=== PATIENT | male | born 1940 | race Caucasian/White ===

== ENCOUNTER 2023-01-28 06:18 | Inpatient (IN) | payer MEDICARE, SELFPAY ==
[2023-01-17 12:40] VITALS: BMI 21.5
[2023-01-28] VITALS (13 sets, daily range): BP systolic 98–149; BP diastolic 52–78; PULSE 63–87; RESP 12–20; TEMP 35.7–36.8; O2SAT 94–100; BMI 21.5
--- NOTE | 2023-01-28 | PATH_ITS ---
[facility] Accession Number: [id number] No. of containers..03 Tissue . 01 Material submitted: . PART A: pelvis - RIGHT PELVIC LYMPH NODE PART B: pelvis - LEFT PELVIC LYMPH NODE PART C: prostate - PROSTATE . 01 Diagnosis: A. Pelvic Lymph Nodes, Right, Excision: Three lymph nodes negative for metastatic carcinoma (0/3). . B. Lymph Nodes, Left Pelvic, Excision: Four lymph nodes negative for metastatic carcinoma (0/4). . C. Prostate Gland, Radical Prostatectomy: Invasive adenocarcinoma, acinar type (see below for cancer reporting template). . -Procedure: Radical prostatectomy. - Prostate size: 38 grams; 5.6 x 4.9 x 3.0 cm. - Histologic type: Acinar adenocarcinoma. - Histologic grade: Grade group 3 (Riverside score of 4+3=7); minor tertiary pattern 5 is not applicable; percentage of pattern 4 is approximately 60%. - Intraductal carcinoma: Not identified. - Cribriform glands: Not identified. - Treatment effect: Not identified. - Tumor quantitation: Approximately 20%; greatest dimension of dominant nodule is 20 x 10 mm. - Extraprostatic extension: Not identified. - Urinary bladder neck invasion: Not identified. - Seminal vesicle invasion: Not identified. - Lymphovascular invasion: Not identified. - Perineural invasion: Present. - Margin status: All margins negative for invasive carcinoma. - Regional lymph node status: All regional lymph nodes negative for metastatic carcinoma (0/7). - Pathologic stage (pTNM, AJCC 8th Edition): pT2 (organ confined), pN0 (no positive regional nodes). - Additional findings: Nodular prostatic hyperplasia. MRV 02/01/2023 1833 Local . 01 Electronically signed: . Daphne Hood MD, Pathologist NPI- [id number] . 01 Gross description: . A. Received in formalin labeled with the patient's name, and right pelvic lymph node consists of a yellow lobulated soft tissue fragment measuring 5.1 x 1.5 x 1.2 cm and three botello lymph node candidates ranging from 0.2 to 1.3 cm in greatest dimension. The lymph node candidates are submitted as follows: A1: Two intact lymph node candidates. A2: Single bisected lymph node candidate. B. Received in formalin labeled with the patient's name, and left pelvic lymph node consists of a yellow lobulated soft tissue fragment measuring 4.4 x 1.5 x 0.9 cm. Palpation reveals two botello lymph node candidates ranging from 0.7 to 1.3 cm in greatest dimension. The specimen is submitted entirely as follows: B1: Single intact lymph node candidate. B2: Single intact lymph node candidate. B3: Remaining adipose. C. Received in formalin labeled with the patient's name, and prostate consists of a radical prostatectomy specimen weighing 38 grams and measuring 5.6 cm SI, 4.9 cm ML, and 3.0 cm AP. The external surface is roughened with the right anterior inked blue, the left anterior inked green, and the posterior inked black. The prostatic urethra is probe patent. The right seminal vesicle measures 2.2 x 1.1 cm, and the left seminal vesicle measures 2.3 x 1.3 cm. Sectioned from apex to base into seven slices to reveal a diffusely nodular botello cut surface with no discrete lesions grossly identified. Odd Piece Checker sections are submitted as follows: C1: Right apex margin perpendicular. C2: Left apex margin perpendicular. C3: Right base margin perpendicular. C4: Left base margin perpendicular. C5: Right vas deferens and seminal vesicle. C6: Left vas deferens and seminal vesicle. C7-C8: Composite slice 2 (apex margin is slice 1). C9-C10: Composite slice 3. C11-C12: Composite slice 4. C13-C14: Composite slice 5. C15-C18: Composite slice 6. ([id number]) /MRV 01/29/2023 1322 Local . 01 Pathologist provided ICD-10: C61 . 01 CPT . 034438, [id number], [id number] Specimen Comment: A courtesy copy of this report has been sent to [phone] Performed at: [address] [facility] [address], [place], [place] [id number] MD Bran Murphy MD Phone: [phone]
[2023-01-28] MEDS: LACTATED RINGERS 1,000 ML 21 ML IV ×3 (07:05→09:42)
[2023-01-28] MEDS: ACETAMINOPHEN IV 1,000 MG/100 ML VIAL 400 MG IV (07:05)
--- NOTE | 2023-01-28 07:24 | PM.PREOP ---
Pre-operative Note COVID-19 Criteria for continued procedure: Expected advancement of disease process, Possibility delay results in more complex future surgery or treatment, Delay expected to result in less-positive ultimate med/surg outcome and Non-surgical alternatives not available or appropriate per current SOC Interval Note History & Physical reviewed/Exam performed by Physician: Yes Changes to H&P: No
[2023-01-28 07:38] LABS: Hematocrit 33.3 % (41-53); Hemoglobin 11.2 g/dL (13.5-17.5)
[2023-01-28] MEDS: CEFAZOLIN 2 GM/100 ML PREMIX 100 ML IV (07:50)
--- NOTE | 2023-01-28 08:35 | SUR.OPER ---
Supine on padded OR bed, head on pillow, arms secured on padded arm boards at <90 degrees abduction, legs uncrossed, safety belt at thigh, tape over blanket over lower legs. Break table at iliac crest for intraop positioning. gel pad under heels and wrists, pillow under knees.
[2023-01-28] MEDS: TRANEXAMIC ACID 1,000 MG in SODIUM CHLORIDE 0.9% 100 ML 200 MG IV (09:12)
[2023-01-28] MEDS: LIDOCAINE 2% (GLYDO) 6 ML GEL TOP (09:17)
[2023-01-28] MEDS: BUPIVACAINE LIPOSOME 266 MG/20 ML VIAL INJ (09:18)
[2023-01-28 09:30] LABS: Appearance Urine UA CLEAR; Bilirubin Urine UA NEGATIVE (NEGATIVE); Color Urine UA YELLOW; Glucose Urine UA NEGATIVE (Negative); Ketones Urine UA NEGATIVE (NEGATIVE); Leukocyte Esterase Urine UA NEGATIVE (NEGATIVE); Nitrite Urine UA NEGATIVE (Negative); Occult Blood Urine UA 2+ (Negative); Protein Urine UA NEGATIVE (Negative); Specific Gravity Urine UA <=1.005 (1.000-1.035); Urobilinogen Urine UA 0.2 E.U./dL (0.2); pH Urine UA 6.5 (4.5-8.0)
[2023-01-28 09:38] LABS: RBC Urine 0-1/HPF (0-5/HPF); WBC Urine 1-5/HPF (0-5/HPF)
[2023-01-28 09:39] LABS: Bacteria Urine Occasional (0-1); Culture Indicated Urine Cult Not Indicated; Squamous Epithelial Cell Urine 0-1 /HPF (0-5/HPF)
--- NOTE | 2023-01-28 11:34 | PM.OP.1 ---
Operative Date/Time/Diagnoses Date of procedure: 01/28/23 Time of procedure: 10:45 Pre-op diagnosis: Prostate cancer Post-op diagnosis: same Procedure & Clinicians Procedure: 1. Radical retropubic prostatectomy/bilateral pelvic lymphadenectomy. 2. Lysis of adhesions. 3. Repair/closure of peritoneum. Same procedure as scheduled: No (Adherent peritoneum and small bowel to lower midline laparotomy incision.) Indications: 1. Prostate cancer Surgeon: Ace Maxwell Customer Account Specialist: Marixa Gil Click Yes if Unassisted: No Anesthesia Type: General, Spinal (Duramorph spinal) and Local (1.33% Exparel diluted 50:50) Operative Notes Findings: Dense midline scar. Adhere peritoneum and small bowel to posterior abdominal wall. Closure Type: primary Specimen(s): other (1. Bilateral pelvic lymph nodes. 2. Prostate with attached seminal vesicles.) Applied: catheter (Eighteen Russian silicone catheter) and drain(s) (15 Russian fenestrated Festus drain) Estimated Blood Loss (mL): 100 Blood products transfused: none Procedure in detail: Patient was positioned in supine and administered general anesthesia following successful placement of Duramorph spinal anesthetic. The abdomen, genitalia, and groin were then prepped and draped in sterile fashion. A 20 Russian Guerrero catheter was advanced and lower urinary tract, the balloon inflated 20 cc, and placed to gravity drainage. A midline incision was made above the pubic symphysis through the level of the skin. Subcutaneous fat was sparse. Careful and methodical sharp division of the anterior rectus sheath was continued. Tycron suture was divided in the process. A small window was made and the index finger insinuated into the preperitoneal space. Careful elevation in continued division was undertaken. At the superior half of the midline incision the peritoneum was densely adherent to the inner wall. A peritoneotomy was required to separate the tissue planes. Once adequate exposure was obtained, the peritoneotomy was closed with running, intermittently locking 2-0 Monocryl. Exposure the anterior lateral pelvic shotr was then performed using blunt technique. Bilateral pelvic lymphadenectomy was then carried out using the same steps and maneuvers as follows; the thin adventitia overlying the external iliac vein was elevated and divided lengthwise using sharp and LigaSure impact cautery technique. The external iliac vein was then carefully elevated and the markell packet was swept away from the lateral pelvic sidewall using blunt technique with division of small vessels and lymphatics as necessary with the LigaSure impact device. The LigaSure impact device was then utilized to divide the markell packet proximally and distally. In both cases the obturator nerve and vessels were identified, isolated, and preserved. Next, the endopelvic fascia was divided on either side of the prostate and the levator musculature gently swept away distally. The dorsal venous complex and puboprostatic ligaments were then carefully isolated and gathered using a [place] clamp. 0 Monocryl was then used in an over and fashion to ligate the dorsal venous complex at the level of the pubic arch. Proximal division puboprostatic ligaments and dorsal venous complex was then conducted using the LigaSure impact device. The 2-0 Monocryl was then tied down snugly with excellent hemostasis. Now with the anterior urethra exposed just above the levators the apex of the prostate and urethral isolated further with blunt technique. A right angle clamp was then gently passed posterior to the urethra in the urethral was then elevated, divided sharply just beyond the prostatic apex. The Guerrero catheter was then brought through the penile urethra and retracted anteriorly and cranially, thus exposing the rectal urethralis musculature. The rectal urethralis musculature was then divided using both blunt and LigaSure impact technique. The posterolateral vascular pedicles were then carefully isolated by developing a plane between the anterior rectal wall in the prostate. Posterior lateral pedicles were then isolated successively clipped x2 on the patient's side with plastic heme lock clips and then divided either sharply or with the LigaSure impact device. Now with the prostate elevated and reflected cranially De Nonviers fascia was divided transversely in the appropriate plane was developed exposed the ampulla of the vas and the seminal vesicles bilaterally. Small heme lock plastic clips were then applied where needed for hemostasis during blunt dissection of each seminal vesicle from there fossa. Large plastic hemoclips lock clips were then applied proximally and distally on the ampulla of the vas on both sides before transection between the clips. Now the bladder neck was from the prostate base using methodical blunt and impact LigaSure technique down to the level of the mucosa. The mucosa was then divided circumferentially in the prostate with attached seminal vesicle were submitted for routine gross and microscopic examination. A Bob bladder neck was then created by facing the mucosa using 4-0 Monocryl interrupted fashion circumferentially. A single additional horizontal mattress of oral Monocryl was then placed posteriorly to narrow the neobladder neck aperture. A Maud sound was then passed into the penile urethra and positioned appropriately at the level of the urethral stump the flanges were then extended providing exposure. 2-0 Monocryl were then placed from outside in, and then inside-out through the urethral stump and neobladder neck at the 2, 4, 6, 8, and 10 positions. The Deepti sound was then removed. An 18 Russian silicone catheter was then advanced into the urethra and into view beyond the urethral stump. The catheter was then advanced into the neobladder neck under direct visualization. The balloon was then inflated to 15 cc. The anastomotic sutures were then tied down successively posterior to anterior, thus completing the vesicourethral anastomosis. The catheter was irrigated for patency and was clear. Next a 15 Russian fenestrated Festus drain was positioned in the space of Retzius and lateral pelvic sidewall region and brought out through separate stab decision to the right of the midline incision. It was secured to the skin with 2-0 silk using a Giovany sandal technique in usual fashion. Fifty 50 diluted Exparel was then used to infiltrate the midline rectus fascia as well as the cutaneous layer. The midline rectus fascia was then closed using running 0 PDS starting each suture at the apex superiorly, and inferiorly and then in a running fashion meeting near the midline at which point they were tied to 1 another in a buried fashion. Subcutaneous layer was closed with a running 2 0 Vicryl. The skin was reapproximated using a running subcuticular 4-0 Monocryl. The skin surfaces were cleaned and dried. Telfa gauze were then fashioned appropriately to fit the drain exit site as well as the midline incision. Transparent Tegaderm was then applied for final Bioclusive dressing. The catheter was placed to gravity drainage and the Festus drain was connected to bulb self suction. Patient was then awakened, transferred to [facility], and then transported recovery in stable condition. Complications: none Post-operative Condition: stable Disposition: PACU Plan for aftercare: Admit to acute care
[2023-01-28] MEDS: LACTATED RINGERS 1,000 ML 125 ML IV ×2 (12:35→18:54)
[2023-01-28] MEDS: HYDROCODONE/ACET 5/325 TABLET 1 TAB PO ×2 (12:37→16:52)
[2023-01-28 13:03] LABS: Estimated Glomerular Filt Rate > 60 mL/min (>60)
[2023-01-28] MEDS: DULOXETINE 30 MG CAPSULE 60 MG PO (20:28)
[2023-01-28] MEDS: MORPHINE ER 30 MG TABLET PO (20:28)
--- NOTE | 2023-01-28 23:07 | PC.NURSE ---
Pt was alert and oriented at the begining of the shift. Patients is forgetful now and has been trying to get out of bed without any assistance. Bed alarm in place.
[2023-01-29] MEDS: LACTATED RINGERS 1,000 ML 125 ML IV (02:41)
[2023-01-29] MEDS: HYDROCODONE/ACET 5/325 TABLET 1 TAB PO ×3 (02:46→11:30)
[2023-01-29 03:00] VITALS: BP 161/68; PULSE 85; RESP 20; TEMP 36.4; O2SAT 100
[2023-01-29] MEDS: HYDROMORPHONE 0.5 MG INJ IV (04:50)
[2023-01-29] MEDS: PANTOPRAZOLE DR 40 MG TABLET PO (06:26)
[2023-01-29 08:10] VITALS: BP 127/71; PULSE 74; RESP 18; TEMP 36.7; O2SAT 95
[2023-01-29] MEDS: ENOXAPARIN 40 MG/0.4 ML SYRINGE SUBCUT (08:57)
[2023-01-29] MEDS: MORPHINE ER 30 MG TABLET PO ×2 (08:57→20:23)
[2023-01-29] MEDS: clonazePAM 0.5 MG TABLET 1 MG PO (08:57)
[2023-01-29] MEDS: HYDROCODONE/ACET 10/325 TABLET 1 TAB PO ×2 (12:48→16:47)
[2023-01-29 13:45] VITALS: BP 141/78; PULSE 71; RESP 20; TEMP 36.3; O2SAT 93
--- NOTE | 2023-01-29 15:37 | CM.DANOTE ---
DCP: Chart review for case, met with patient at bedside, they agree to case management assessment. Completed DCP assessment based on information available. Patient is an 82 year old admitted for planned prostatectomy with nodes and lysis of adhesions. He is slow to respond to CM questions and answers tangentially. He relays that he does have some memory impairment. Mena is at bedside and fills in answers for him when he cannot. He relays that he walks with cane, lives in single level home on [place]. Still drives, but admits to getting lost sometimes while driving. CC: Prostate Ca/planned prostatectomy PCP: Nando Orellana Payer: BC Medicare DCP: Home with Guerrero. 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 P: Mobility, pain control. Mireya Marsh RN CM Discharge Planning/Care Management Pre-Anesthesia Assessment Start: 01/17/23 12:39 Freq: Status: Complete Protocol: Document 01/17/23 12:40 CAB (Rec: 01/17/23 13:41 CAB [id number]) Pre-Anesthesia Assessment Preferred Name Bubba Patient Information Reviewed Via Phone Assessment Assessment Completed With Patient Primary Care Provider Nando Orellana Seen Specialist in Last 12 Months Yes Specialist Seen Urologist Primary Language South African Drill Rig Operator Required No Height 5 ft 10 in Weight 150 lb Body Mass Index (BMI) 21.5 Hearing Ability Hearing Impaired,Use of Hearing Aid Visual Assist Magnifying Glass Dentition Type Teeth, Natural Present,Partial - Upper & Lower Barriers to Learning Auditory,Memory Hx Anesthesia Reactions No Hx Family Anesthesia Reaction No Hx Malignant Hyperthermia No Hx Blood Transfusions No Anesthesia Review Requested No Tax Advisor No alcohol intake former Smoking Status Former smoker Tobacco type cigarettes,pipe how long ago did patient quit smoking Quit approx 15 years ago Substance Use Type does not use Pain Present Pain Reported Musculoskeletal Symptoms Abnormal Gait,Arthralgias,Back Pain,Difficulty Walking, Myalgias History of Falling (Recent or History of No ) Patient is completely paralyzed or No completely immobile Prosthesis or Orthotic Device Cane Mental Status Oriented to own ability Is patient on oxygen? No Does patient have HERRERA/SOB No Hx Sleep Apnea No Suspected Sleep Apnea Yes: No formal testing, states he snores, stops breathing, gasps for air Currently Taking a Beta Rodo No Can You Climb a Flight of Stairs Without Yes SOB Hx Chest Pain No Hx SOB No Hx Syncope or Dizziness Yes: Occasional dizziness pt feels r/t medication, quick positional changes Anti-Coagulant Therapy No Has a Screw Machine Set Up Operator Tool No Cardiac Testing No Hx Pacemaker/ICD No Pacemaker Rep Required? 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 Yes Received all doses? Yes Marital Status Lives With spouse Current Living Arrangements Mobile home Support System Spouse Patient Discharge Plan Description Return Home Comment Pt advised 2-3 day length of stay per surgeon Additional comment Pt lives on [facility] Feels Safe in Current Environment Yes Been Physically Hurt or Threatened By a No Person in Current Environment Do you have thoughts of harming yourself None or others? Are you currently considering suicide? No Do you have a plan to hurt yourself or No Plan others? Do You Have Any Spiritual Beliefs That No May Affect Your HC Choices? Do You Have Any Cultural Practices That No May Affect Your HC Choices? Comment Miguelito Who Can We Speak to About Patient's Care Family, friends Identifying Code for Release of Patient Declines to issue Information Health Care Proxy/Next of Kin Mena () Health Care Proxy Emergency Contact Name Sarika Gabriel (Friend) Emergency Contact Advance Directives? No Power of Customer Complaint Clerk No PAC Instructions Medications to take/avoid,No ETOH/petroleum product on skin DOS,NPO,Post-op transportation,Sturdy shoes/ comfortable clothes,Do not bring valuables and remove jewelry
[2023-01-29] MEDS: QUETIAPINE 25 MG TABLET PO (18:57)
--- NOTE | 2023-01-29 19:52 | PC.NURSE ---
Changes in LOC: Very disoriented this am, only oriented to self, had to have 1:1 staffing during the night due to pulling on peralta, beatrice, and IV, wanted to be discharged immed. Dr. Maxwell here to see pt this am and discussed with pt and spouse why he needed to stay. Initially pt was agreeable. He did eat a sm amt of his meal, received pain medication which was changed per his request to 10mg hydrocodones. Then he had a period of confusion in which he was trying to get oob by self. He is extremely unsteady on his feet almost falling several times. He did take a walk in the hallways and that seemed to help. He rested for a short time and then awoke again very disoriented, He forced his way over to the bed/couch under the window and was rolling out at times. Would have fallen if it wasnt for the both nurses being there. Pt is quite strong for 82 and still chops his own wood at home. A Rapid response was called to get pt back to his bed, it took 4 people to direct him there. His sat was 95% on RA and his heart rate was 86. Unable to obtain rest of vital signs as pt refused. He wants to go home, get dressed. He then dozed for a short time then awoke very disoriented, he got oob, almost falling making his way to the door saying he wanted to go home. He asked for the police or security so he could make a report against the staff. Security was called and they spoke with pt and allowed him to express his feelings. He requests to be arrested so he can go to long-term to get out of the hospital. He made a complaint about most of the nurses not allowing him to do what ever he wanted. He seemed to feel better being able to air his feelings. During this time Dr. Maxwell was called and notified of pts extreme disorientation and agitation and potential for injury. Dr Maxwell gave order for hospitalist and spoke with Dr. Schmidt on the phone. Received one time order for seroquel. The medication had no effect. Pt adament about leaving even though he can barely stand and walk. Got a hold of Dr. Lynn and he was notified that pt remains very disoriented. Dr. Lynn spoke with and ordered some new medications. Pt is currently sl more relaxed. Currently he is with the float, security shift manager. and his primary nurse who are providing continueing care for patient.
[2023-01-29] MEDS: LORazepam 2 MG/ML INJ 1 MG IV (20:22)
[2023-01-29] MEDS: MORPHINE 4 MG/ML INJ IV (20:22)
[2023-01-29] MEDS: DULOXETINE 30 MG CAPSULE 60 MG PO (20:23)
[2023-01-29 21:31] VITALS: BP 122/69; PULSE 85; RESP 18; TEMP 36.8; O2SAT 93
[2023-01-30 01:00] VITALS: BP 132/72; PULSE 76; RESP 18; TEMP 36.7; O2SAT 93
[2023-01-30] MEDS: MORPHINE 4 MG/ML INJ IV ×2 (02:15→08:21)
[2023-01-30] MEDS: HYDROCODONE/ACET 10/325 TABLET 1 TAB PO ×2 (04:47→14:18)
[2023-01-30 05:00] VITALS: BP 128/60; PULSE 92; RESP 20; TEMP 36.3; O2SAT 92
[2023-01-30 05:06] LABS: Add Manual Diff / Slide Review NO; Basophils Absolute Auto 0 /uL (0-100); Basophils Percent Auto 0.3 % (0-2); Eosinophils Absolute Auto 100 /uL (0-450); Hematocrit 27.9 % (41-53); Hemoglobin 9.5 g/dL (13.5-17.5); Lymphocytes Absolute Auto 1500 /uL (1100-4500); Lymphocytes Percent Auto 15.9 % (25-40); Mean Corpuscular HGB Conc 33.9 % (30-36); Mean Corpuscular Hemoglobin 29.7 PG (26-34); Mean Corpuscular Volume 87.8 fL (80-100); Monocytes Absolute Auto 900 /uL (0-900); Monocytes Percent Auto 9.7 % (3-14); Neutrophils Absolute Auto 6800 /uL (1500-7000); Neutrophils Percent Auto 73.1 % (50-75); Platelet Count 189 X10^3/uL (150-400); Red Blood Cell Count 3.18 X10^6/uL (4.5-5.9); Red Cell Distribution Width 14.5 % (11.6-14.8); White Blood Cell Count 9.4 X10^3/uL (4.5-11.0)
[2023-01-30 05:17] LABS: Alanine Aminotransferase 15 IU/L (<50); Albumin 3.4 g/dL (3.5-5.0); Albumin Globulin Ratio 1.4 (1.0-2.8); Alkaline Phosphatase 61 U/L (38-126); Aspartate Aminotransferase 31 IU/L (17-59); BUN Creatinine Ratio 9.1 (6-22); Bilirubin Total 0.4 mg/dL (0.2-1.3); Blood Urea Nitrogen 7 mg/dL (9-20); Calcium 8.4 mg/dL (8.4-10.2); Carbon Dioxide 34 mmol/L (22-32); Chloride 99 mmol/L (98-107); Estimated Glomerular Filt Rate > 60 mL/min (>60); Globulin 2.4 g/dL (1.7-4.1); Glucose 106 mg/dL (80-110); HEMOLYSIS < 15 (0-50); Potassium 3.6 mmol/L (3.4-5.1); Sodium 136 mmol/L (137-145); Total Protein 5.8 g/dL (6.3-8.2)
[2023-01-30 05:18] LABS: Ammonia (NH3) 13 umol/L (9-30)
[2023-01-30 05:52] VITALS: BP 128/60; PULSE 92; RESP 20; TEMP 36.3; O2SAT 92
--- NOTE | 2023-01-30 06:27 | PM.HP.1 ---
History of Present Illness History of Present Illness Date Patient Seen: 01/29/23 Time Patient Seen: 20:30 Chief complaint: Prostatectomy radical retropubic w/ Pland Narrative: Mr. Rose is an 82M with H prostate cancer, chronic back pain, anxiety who was admitted to the hospital after a radical prostatectomy. Prostatectomy was performed on 01/28 and per notes procedure was routine and without complications. Afterwards the patient began having episodes of agitation and encephalopathy. He had been resumed on most of his home medications, except that initially it appears his oxycodone was ordered at a lower dose than what he takes. History is obtained from patient's and RN as the patient is confused and agitated and unable to provide meaningful history. The patient's states she has seen him in a similar situation previously when he ran out of his opiates at home. She says he does have anxiety and takes clonazepam usually once a day. He does not drink alcohol, he has no other substance abuse history. His states he has some cognitive impairments. Per nursing his and review of vitals he does not appear to have any fevers, his blood pressure has been normal. Labs have been unable to be drawn due to his agitation. Medicine is consulted to assist with management of his agitation and encephalopathy. He did receive IV morphine and subsequently became much more relaxed. [facility] Medical History Acid reflux Anxiety Arthritis BPH loc w/o ur obs/LUTS Elevated blood pressure reading without diagnosis of hypertension Elevated PSA Family history of prostate cancer in father Hearing impaired Hematuria Hx of acute arthritis Prostate cancer Suspected sleep apnea Surgical History H/O vasectomy History of colon surgery (1994) Hx of bilateral cataract extraction (04/2022) Family History Father Cancer Diabetes mellitus Social History marital status: number of children: 1 household members: spouse Smoking Status: Former smoker Smokeless tobacco user: other alcohol intake: former caffeine: Yes Type(s) of exercise: none Meds Home Medications and Allergies Home Medications Medication Instructions Recorded Confirmed Type clonazepam 1 mg tablet 1 mg PO DAILY 08/13/22 01/28/23 History duloxetine 60 mg capsule,delayed 60 mg PO BEDTIME 08/13/22 01/28/23 History release hydrocodone 5 mg-acetaminophen 325 1 tab PO Q4-6H PRN Pain 08/13/22 01/28/23 History mg tablet morphine 30 mg capsule,extended 30 mg PO Q12H 08/13/22 01/28/23 History release pellets omeprazole 40 mg capsule,delayed 40 mg PO DAILY 08/13/22 01/28/23 History release Allergies Allergy/AdvReac Type Severity Reaction Status Date / Time Penicillins Allergy Severe Hives Verified 01/28/23 06:36 shellfish derived Allergy Severe Hives Verified 01/28/23 06:36 Review of Systems Review of Systems Narrative: unable to review due to agitation and encephalopathy Exam Vital Signs (past 8 hours): - 01/30/23 01:00 01/30/23 05:00 01/30/23 05:52 Temperature 98.0 F 97.4 F L 97.4 F L Pulse Rate 76 92 H 92 H Respiratory Rate 18 20 20 Blood Pressure 132/72 128/60 128/60 Pulse Oximetry 93 92 92 Oxygen Flow Rate 0 0 0 Oxygen Delivery Method Room Air Oxygen Flow Rate 0 Narrative Exam Narrative: GEN: agitated rest of physical exam deferred due to patient agitation Objective Labs 01/30/23 05:00 01/30/23 05:00 Labs: Laboratory Results - last 24 hr 01/30/23 01/30/23 01/30/23 05:00 05:00 05:00 WBC 9.4 RBC 3.18 L Hgb 9.5 L Hct 27.9 L MCV 87.8 MCH 29.7 MCHC 33.9 RDW 14.5 Plt Count 189 Neut % (Auto) 73.1 Lymph % (Auto) 15.9 L Howard % (Auto) 9.7 Eos % (Auto) 1.0 L Baso % (Auto) 0.3 Neut # (Auto) 6800 Lymph # (Auto) 1500 Howard # (Auto) 900 Eos # (Auto) 100 Baso # (Auto) 0 Sodium 136 L Potassium 3.6 Chloride 99 Carbon Dioxide 34 H BUN 7 L Creatinine 0.77 Estimated GFR > 60 BUN/Creatinine Ratio 9.1 Glucose 106 Calcium 8.4 Total Bilirubin 0.4 AST 31 ALT 15 Alkaline Phosphatase 61 Ammonia 13 Total Protein 5.8 L Albumin 3.4 L Globulin 2.4 Albumin/Globulin Ratio 1.4 Assessment & Plan Assessment & Plan narrative: 1. Acute agitation and encephalopathy -likely multifactorial -but suspect primarily related to opiate withdrawal, with component of sundowning in a background of mild cognitive impairment -he is now scheduled for his regular opiate meds, and because of recent surgery does have IV pain medications as needed -he did get one dose IV ativan -labs have been ordered to evaluate further for encephalopathy -review of vitals show no evidence of infection, will review labs as well, but doubt infection 2. Prostate cancer s/p radical prostatectomy -management per urology -peralta to be kept in place on dishcarge CODE: Full Proxy: Mena Rose, spouse Quality VTE Deep Vein Thrombosis/Pulmonary Embolism Present on Admission: No
[2023-01-30 07:51] VITALS: BP 138/86; PULSE 89; RESP 18; TEMP 36.9; O2SAT 96
--- NOTE | 2023-01-30 08:04 | P.PN_ITS ---
Subjective Subjective Date Patient Seen: 01/29/23 Time Patient Seen: 07:05 Interval history: 82-year-old male postoperative day 1 status post radical retropubic prostatectomy and bilateral pelvic lymphadenectomy. Some confusion and disorientation reported by nursing through the night. [place] state [place] inn last evening. The patient reports having had a bowel movement and confirmed by nursing and is tolerating p.o. well. Exam Vital Signs (past 8 hours): - 01/30/23 01:00 01/30/23 05:00 01/30/23 05:52 Temperature 98.0 F 97.4 F L 97.4 F L Pulse Rate 76 92 H 92 H Respiratory Rate 18 20 20 Blood Pressure 132/72 128/60 128/60 Pulse Oximetry 93 92 92 Oxygen Flow Rate 0 0 0 01/30/23 07:51 Temperature 98.4 F Pulse Rate 89 Respiratory Rate 18 Blood Pressure 138/86 Pulse Oximetry 96 Oxygen Flow Rate 0 Oxygen Delivery Method Room Air Oxygen Flow Rate 0 Narrative Exam Narrative: He is sitting upright comfortably in bed and in no distress. Chest-equal and unlabored expansion bilaterally. Heart-normal sinus rhythm. Abdomen-nondistended, nontender. Dressing and GREG drain intact. Guerrero intact with clear light straw-colored output. Extremities-no edema pallor or cyanosis. Objective Labs 01/30/23 05:00 01/30/23 05:00 Labs: Laboratory Results - last 24 hr 01/30/23 01/30/23 01/30/23 05:00 05:00 05:00 WBC 9.4 RBC 3.18 L Hgb 9.5 L Hct 27.9 L MCV 87.8 MCH 29.7 MCHC 33.9 RDW 14.5 Plt Count 189 Neut % (Auto) 73.1 Lymph % (Auto) 15.9 L [place] % (Auto) 9.7 Eos % (Auto) 1.0 L Baso % (Auto) 0.3 Neut # (Auto) 6800 Lymph # (Auto) 1500 [place] # (Auto) 900 Eos # (Auto) 100 Baso # (Auto) 0 Sodium 136 L Potassium 3.6 Chloride 99 Carbon Dioxide 34 H BUN 7 L Creatinine 0.77 Estimated GFR > 60 BUN/Creatinine Ratio 9.1 Glucose 106 Calcium 8.4 Total Bilirubin 0.4 AST 31 ALT 15 Alkaline Phosphatase 61 Ammonia 13 Total Protein 5.8 L Albumin 3.4 L Globulin 2.4 Albumin/Globulin Ratio 1.4 PFSH Medical History Acid reflux Anxiety Arthritis BPH loc w/o ur obs/LUTS Elevated blood pressure reading without diagnosis of hypertension Elevated PSA Family history of prostate cancer in father Hearing impaired Hematuria Hx of acute arthritis Prostate cancer Suspected sleep apnea Surgical History H/O vasectomy History of colon surgery (1994) Hx of bilateral cataract extraction (04/2022) Family History Father Cancer Diabetes mellitus Social History marital status: number of children: 1 household members: spouse Smoking Status: Former smoker Smokeless tobacco user: other alcohol intake: former caffeine: Yes Type(s) of exercise: none Assessment & Plan Assessment & Plan narrative: Assessment: 1. Stable postop day 1 status post radical retropubic prostatectomy and bilateral pelvic lymphadenectomy. 2. Indwelling Guerrero. 3. Pathology pending. Plan: 1. Increase activity today. 2. Catheter care and use instruction prior to discharge. 3. Follow-up pathology report as outpatient when final. Quality VTE Deep Vein Thrombosis/Pulmonary Embolism Present on Admission: No
--- NOTE | 2023-01-30 08:08 | PM.DS.1 ---
History of Present Illness History of Present Illness Date Patient Seen: 01/30/23 Time Patient Seen: 07:15 Chief complaint: Prostatectomy radical retropubic w/ [place] Narrative: Medically stable and uneventful night. Patient became combative yesterday afternoon/evening requiring physical restraint by staff. His behavior did not respond with administration of Seroquel per Dr. Schmidt initially. Following administration of Ativan the patient became non combative and cooperative. The remainder of the night was uneventful. His 's stayed with him through the night and assisted in providing reassurance and orientation. He continues to tolerate p.o. and bowel function has returned without delay. Discharge Providers Provider Date of admission: 01/28/23 06:18 Discharge Date: 01/30/23 Primary care physician: Nando Orellana MD Consults: 01/29/23 19:03 Consult to Hospitalist Service Routine Comment: Consulting Provider: Kishore Schmidt Reason for consultation: agitation, delirium Discharge provider: Ace Maxwell MD Summary Hospital Course Discharge Diagnosis: 1. Prostate cancer. 2. Family history of prostate cancer. Hospital Course: The patient was admitted on the morning of 01/28/2023, and underwent radical retropubic prostatectomy and bilateral pelvic lymphadenectomy under general and Duramorph spinal anesthesia. His postoperative course was only remarkable for agitation and delirium that responded to routine anxiolytics. On the morning of 01/30/2023 the patient was stable for discharge. Routine catheter care and use instruction were provided. Follow-up dates were not confirmed but generally discussed. The common side effects, precautions, and intake instructions for discharge medications including oxycodone, ciprofloxacin, and enoxaparin were provided. Pathology was pending at discharge. Exam Vital Signs (past 8 hours): - 01/30/23 01:00 01/30/23 05:00 01/30/23 05:52 Temperature 98.0 F 97.4 F L 97.4 F L Pulse Rate 76 92 H 92 H Respiratory Rate 18 20 20 Blood Pressure 132/72 128/60 128/60 Pulse Oximetry 93 92 92 Oxygen Flow Rate 0 0 0 01/30/23 07:51 Temperature 98.4 F Pulse Rate 89 Respiratory Rate 18 Blood Pressure 138/86 Pulse Oximetry 96 Oxygen Flow Rate 0 Oxygen Delivery Method Room Air Oxygen Flow Rate 0 Narrative Exam Narrative: He is sitting upright in bed and in no distress. Chest-equal and unlabored expansion bilaterally. Heart-normal rate and rhythm. Abdomen-dressings intact. GREG drain is empty and does not provide self suction. No distention. Guerrero intact and draining light straw-colored urine. Extremities. Pulses palpable in all 4 without edema, cyanosis or clubbing. Objective Labs 01/30/23 05:00 01/30/23 05:00 Labs: Laboratory Results - last 24 hr 01/30/23 01/30/23 01/30/23 05:00 05:00 05:00 WBC 9.4 RBC 3.18 L Hgb 9.5 L Hct 27.9 L MCV 87.8 MCH 29.7 MCHC 33.9 RDW 14.5 Plt Count 189 Neut % (Auto) 73.1 Lymph % (Auto) 15.9 L [place] % (Auto) 9.7 Eos % (Auto) 1.0 L Baso % (Auto) 0.3 Neut # (Auto) 6800 Lymph # (Auto) 1500 [place] # (Auto) 900 Eos # (Auto) 100 Baso # (Auto) 0 Sodium 136 L Potassium 3.6 Chloride 99 Carbon Dioxide 34 H BUN 7 L Creatinine 0.77 Estimated GFR > 60 BUN/Creatinine Ratio 9.1 Glucose 106 Calcium 8.4 Total Bilirubin 0.4 AST 31 ALT 15 Alkaline Phosphatase 61 Ammonia 13 Total Protein 5.8 L Albumin 3.4 L Globulin 2.4 Albumin/Globulin Ratio 1.4 PFSH Medical History Acid reflux Anxiety Arthritis BPH loc w/o ur obs/LUTS Elevated blood pressure reading without diagnosis of hypertension Elevated PSA Family history of prostate cancer in father Hearing impaired Hematuria Hx of acute arthritis Prostate cancer Suspected sleep apnea Surgical History H/O vasectomy History of colon surgery (1994) Hx of bilateral cataract extraction (04/2022) Family History Father Cancer Diabetes mellitus Social History marital status: number of children: 1 household members: spouse Smoking Status: Former smoker Smokeless tobacco user: other alcohol intake: former caffeine: Yes Type(s) of exercise: none Discharge Assessment & Plan Assessment and Plan Assessment: 1. Stable postop day 2 status post radical retropubic prostatectomy and bilateral pelvic lymphadenectomy. 2. Indwelling Guerrero. 3. Pathology pending. Plan of Treatment: 1. Discharge home today. 2. Arrangements will be made for outpatient Guerrero catheter removal February 11 2023. Patient's provided large and leg bag with routine care and use instruction. 3. Pathology will be followed up and discuss when report final. Discharge Plan Discharge Plan Patient Disposition: Home Provider Discharge Comment: Please contact the urology clinic to schedule outpatient follow-up appointments. Discharge orders & Medications Prescriptions: New oxycodone 5 mg tablet 5 mg PO Q4H PRN (Reason: pain) Qty: 14 0RF Rx Instructions: Take 1 tablet every 4 hours as needed for breakthrough pain. enoxaparin [Lovenox] 40 mg/0.4 mL Syringe 40 mg SUBCUT DAILY Qty: 12 0RF enoxaparin 40 mg/0.4 mL syringe kit 40 mg SUBCUT DAILY Qty: 30 0RF ciprofloxacin HCl [Cipro] 250 mg tablet 250 mg PO BID Qty: 6 0RF Rx Instructions: Take 1st tablet the morning of 02/10/2023. Complete prescription as directed. Continued hydrocodone-acetaminophen 5-325 mg tablet 1 tab PO Q4-6H PRN (Reason: Pain) duloxetine 60 mg capsule,delayed release(DR/EC) 60 mg PO BEDTIME morphine 30 mg capsule,extend.release pellets 30 mg PO Q12H clonazepam 1 mg tablet 1 mg PO DAILY omeprazole 40 mg capsule,delayed release(DR/EC) 40 mg PO DAILY Follow up/Referrals: Ace Maxwell MD [Physician] - (Please contact Dr Maxwell's office to schedule post-op follow up appointment @ [phone]) Nando Orellana MD [Primary Care Provider] - Activity Restrictions/Additional Instructions: Do not lift objects greater than 15 lb x 6 weeks Diet/Activity/Treatments Diet: Diet as Tolerated Activity: Do not lift objects greater than 15 lb x 6 weeks. No driving x2 weeks. Catheter: 2-way Guerrero Skin/Wound/Dressing Care Skin care: May shower daily. Leave incision open to air. Report to your healthcare provider any signs of infection, such as:: chills, fever, night sweats, increased pain, unusual drainage and unusual redness Visit Report/Discharge Packet Instructions: How to Care for Your Guerrero Catheter -- Male, DI for Radical Prostatectomy, How to Prevent Falls, DI for Prescription Opioid Use, DI for Encephalitis Discharge Data Primary Care Provider: Nando Orellana VTE Deep Vein Thrombosis/Pulmonary Embolism Present on Admission: No
[2023-01-30] MEDS: ENOXAPARIN 40 MG/0.4 ML SYRINGE SUBCUT (08:21)
[2023-01-30] MEDS: ACETAMINOPHEN 325 MG TABLET 650 MG PO (08:22)
[2023-01-30] MEDS: PANTOPRAZOLE DR 40 MG TABLET PO (08:23)
[2023-01-30] MEDS: clonazePAM 0.5 MG TABLET 1 MG PO (08:23)
[2023-01-30] MEDS: MORPHINE ER 30 MG TABLET PO (09:11)
--- NOTE | 2023-01-30 11:50 | CM.DPC ---
DCP Cont: Met with patient in his room, and spouse. Discussed home health options, is aware of home health services, and that [facility] is the only agency that serves [place]. Brought in a brochure for [facility]. Left Bernard a message, and faxed over the referral. P: Patient is discharging home today with [facility], have faxed over the face to face, orders, face sheet, DC Summary, H&P. Nathalie Crowder RN/Hearing Instrument Specialist
[2023-01-30 12:00] VITALS: BP 124/77; PULSE 95; RESP 16; TEMP 35.9; O2SAT 97
--- NOTE | 2023-01-30 18:07 | PC.NURSE ---
Discharge:Pt and spouse feel ready to go home. Pt is still disoriented but not as much as he was yesterday. He knew his name and he was in the hospital, but not the date or certain things which occurred. Oddly enough he did remember when he became extremely disoriented and a giant man kept him from being able to get his umbrella. There was no umbrella but there was a tall RN working yesterday. Seen by MD howard given d/c instructions. taught leg bag training, she was able to open change to leg bag and back. Was able to empty bag, understands how to clean same. instructed in lovenox injections. He got some vicodin which wasnt quite enough and he took an injection of morphine to keep hm comfortable on the road. Lives on [place]. Recieved priority load pass. Reviewed discharge packet. Questions answered. Pt is tolerating diet w/out problems. Pain was in control. Pt d/c to home via auto with friend.
--- NOTE | 2023-03-09 16:41 | PC.NURSE ---
Pt received anIV dose of morphine prior to discharge back on the [facility]. Pt's spouse and cement truck driver were watching.
== END 2023-01-30 15:10 | disposition home health service (06) | DRG 707 ==
PROVIDERS: Internal Medicine; Admitting Provider Specialist; PCP Family Medicine; Referring Provider Specialist; Visit Provider Specialist
PROC: 0VT00ZZ Resection of Prostate, Open Approach (ICD-10-PCS; principal; 2023-01-28 07:45)
DX: C61 Malignant neoplasm of prostate (principal); F11.23 Opioid dependence with withdrawal; G93.40 Encephalopathy, unspecified; K21.9 Gastro-esophageal reflux disease without esophagitis; F41.9 Anxiety disorder, unspecified; R45.1 Restlessness and agitation; Z87.891 Personal history of nicotine dependence; Z20.822 Contact with and (suspected) exposure to COVID-19
CPT/HCPCS: 36415; 55845; 80053; 81001; 82140; 82565; 82962; 85014; 85018; 85025; 86850; 86900; 86901; C9290; J0131; J0690; J1100; J1170; J1650; J2060; J2270; J2274; J2704; J3010

== ENCOUNTER 2023-03-06 09:09 | Outpatient (RCR) | payer MEDICARE, SELFPAY ==
[2023-01-28 12:19] VITALS: BMI 21.5
--- NOTE | 2023-03-07 12:19 | PT.OIE ---
Current Diagnoses Malignant neoplasm of prostate (03/06/23) Other specified urinary incontinence (03/06/23) Pelvic muscle wasting (03/06/23) Nocturia (03/06/23) Past Medical History (Last Reviewed 01/30/23 @ 06:28 by Damien Lynn MD) Acid reflux Anxiety Arthritis BPH loc w/o ur obs/LUTS Elevated blood pressure reading without diagnosis of hypertension Elevated PSA Family history of prostate cancer in father Hearing impaired Hematuria Hx of acute arthritis Prostate cancer Suspected sleep apnea Past Surgical History (Last Reviewed 01/30/23 @ 06:28 by Damien Lynn MD) H/O vasectomy History of colon surgery (1994) Hx of bilateral cataract extraction (04/2022) Visit Care Team Role Provider Type Nando Orellana MD Family Provider Physician Primary Care Provider Specialty: Family Practice Address: [address], [address] Email: [email or web address] Ace Maxwell MD Attending Provider Physician Referring Provider Specialty: Urology Address: [address] [place] [address], [id number] Email: Physical Therapy Initial Evaluation PT-OP-A Visit Information Start: 03/06/23 10:30 Freq: Status: Active Protocol: Document 03/06/23 10:33 [facility] (Rec: 03/06/23 11:12 [facility] [id number]) Out-Patient Physical Therapy Visit Information Visit Information Visit Type Initial Evaluation Visit Start Time 10:30 Visit Stop Time 11:10 Total Visit Minutes 40 Visit Number 1 Evaluation Information Evaluation Date 03/06/23 PT-OP-B Current Condition Start: 03/06/23 10:30 Freq: Status: Active Protocol: Document 03/06/23 10:30 [facility] (Rec: 03/06/23 11:12 [facility] [id number]) Current Condition History of Current Condition Onset Date 01/28/23 Current Complaints urinary leakage s/p prostatectomy History of Current Condition pt notes he is doing better with leakage every day. He is using both pads and depends and he can wear the same one all day long. For example he has one on now and he hasn't noticied any leakage. There is a little leakage at night but not a lot. He gets up 3-4 times per night to void, it was every hour and is tapering off. He is drinking 8 glasses of 8oz of fluid during the day. Treatment Goals Patient/Caregiver Goals pts goals include full continence Current Functional Impairments (Reported) Functional Limitations- ADL's pt is limited with ADL's that require heavy lifting due to increased leakage Functional Limitations- Other pt is limited in his ability to sleep through the night due to waking up to void 3-4 times per night PT-OP-F Manual Assessment Start: 03/06/23 10:30 Freq: Status: Active Protocol: Document 03/06/23 10:30 [facility] (Rec: 03/07/23 11:55 [facility] [id number]) Manual Assessments Soft Tissue Assessment Soft Tissue Mobility Assessment scar tissue present on either side of the lower abdominal incision, restrictions in the mobility of the suprapubic fascia due to scar tissue decreased bladder mobility PT-OP-I Pelvic Floor Start: 03/06/23 10:30 Freq: Status: Active Protocol: Document 03/06/23 10:30 [facility] (Rec: 03/07/23 11:59 [facility] [id number]) Pelvic Floor Assessment Urine Pelvic Floor Surgery Yes: prostatectomy Urinary Symptoms Urge Sensation Other Urinary Symptoms urinary leakage with activity 5-10 times per day Leakage Size Medium Leakage Cause Urge Other Leakage Causes activity throught the day causes leakage Leaks Per Day 5-10 Voiding Frequency 2 hours Nocturia 4 Pads Used In 24 Hours 1-2 Urine Pad Type Depends Contraction Ability Voluntary Contraction Weak Muscle Endurance (Seconds) 2 Comments Pelvic Floor Comments external pelvic floor assessment done today, pt tends to pulse his pelvic floor with contractions and is limited to 1-2 sec hold. He is educated on facilitation of the anterior pelvic floor and endurance pelvic floor contractions PT-OP-J Posture/Palpation/Skin Start: 03/06/23 10:30 Freq: Status: Active Protocol: Document 03/06/23 10:30 [facility] (Rec: 03/07/23 11:55 [facility] [id number]) Palpation Assessment Location prostatectomy scar lower abdomen Palpation Findings Soft Tissue Tightness Palpation Details scar is well healed, there is scar tissue tightness on either side of the scar and decreased mobility of the suprapubic fascia PT-OP-Q Treatments Start: 03/06/23 10:30 Freq: Status: Active Protocol: Document 03/06/23 10:30 [facility] (Rec: 08/02/23 11:13 [facility] [id number]) Therapeutic Exercises Supine Exercises pelvic floor quick contractions Reps/Minutes 2 sec on 2 sec off x 10 reps pelvic floor long holds Reps/Minutes x 10 reps 10 sec on 10 sec off Other Exercises sit-stand with pelvic floor engagement Reps/Minutes x 10 reps Self-Care/Home Management Treatment Education Patient Education Home Exercise Program Other Education pt is educated in scar tissue massage over the prostatectomy incision to do at home to help decrease tightness in the suprapubic fascia and improve bladder mobility PT-OP-T Assessment and Plan Start: 03/06/23 10:30 Freq: Status: Active Protocol: Document 03/06/23 10:30 [facility] (Rec: 03/07/23 12:03 [facility] [id number]) Physical Therapy Assessment Rehab Potential Rehabilitation Potential Excellent Evaluation Complexity Number of Personal Factors/Comorbidities 0 Number of Body Systems Impaired 1-2 Clinical Presentation at Evaluation Stable Impairments Impairments Activity Tolerance,Soft Tissue Mobility,Strength Other Impairments urinary incontinence and nocturia Goals 3 Impairment Nocturia with pt waking 4 times per night to void Furniture Maker Goal (LTG) Bubba is able to reduce his night time voiding and is waking up only 1-2 times per night to void LTG Duration 8 weeks+ 2 Impairment urinary stress incontinence with Bubba leaking 5-10 times per day Short Term Goal (STG) Bubba is educated on a pelvic floor strengthening program for home to help reduce urinary incontinence STG Duration 3 weeks Furniture Maker Goal (LTG) Bubba report he has little to no leakage throughout the day LTG Duration 8 weeks+ 1 Impairment pelvic floor weakness s/p radical retropubic prostatectomy Usp Goal (LTG) Bubba is demonstrating improved pelvic floor strength as is able to sustain a pelvic floor contraction in supine x 10 seconds and in standing x 5 seconds LTG Duration 8 weeks Assessment Summary Assessment Bubba is a 82 year old male who is s/p Radical retropubic prostatectomy/bilateral pelvic lymphadecectomy on 01/28/23. He presets to today with urinary incontinence symptoms that are improving since his surgery. He does note that he leaks 5-10 times per day but is only wearing one depends a day for the most part. He notes his leakage does increase with activity but is becominning less. Bubba wakes 3-4 times at night to void. He reports he was waking every hour due to urgency however this has been tapering off. Time was spent today looking at his incision and assessing scar tissue. The incision is well healed. There is scar tissue present and worked on scar tissue mobilization for the bladder and suprapubic fascia. Pt notes this felt good to decrease scar tissue tightness and he was shown how to gently work on scar tissue massage for home. Bubba was educated on pelvic floor contractions. He tends to pulse his pelvic floor and lacks the ability to sustain a pelvic floor contraction more than a few seconds. He was educated on endurance holds of his pelvic floor, bracing his pelvic floor prior to transition movements, and quick contractions of his pelvic floor. He tolerated this well. Bubba is traveling from the [facility] and would like to spread out his visitis . He will be seen every other week for PT for pelvic floor strengtheing with a goal of working toward full continence . Physical Therapy Plan Frequency and Duration Frequency of Treatment Every Other Week Duration of treatment (weeks) 8 Plan of Care Start Date 03/06/23 Plan of Care End Date 05/01/23 Therapeutic Interventions Therapeutic Interventions Home Exercise Program, Neuromuscular Re-education, Patient/Caregiver Education, Self-Care/Home Management, Therapeutic Exercises Modalities Biofeedback Next Visit Focus/Plan Next Note Type Treatment Note Next Visit Plan review pelvic floor exercises given at initial evaluation, asses scar tissue progress pelvic floor exercises with EMG biofeedback
--- NOTE | 2023-03-07 12:20 | PT.OPPOC ---
Physical, Occupational & Speech Therapy At [facility] Current Diagnoses Malignant neoplasm of prostate (03/06/23) Other specified urinary incontinence (03/06/23) Pelvic muscle wasting (03/06/23) Nocturia (03/06/23) Visit Care Team Role Provider Type Nando Orellana MD Family Provider Physician Primary Care Provider Specialty: Family Practice Address: [facility] [address], [place], [address] Email: [email or web address] Ace Maxwell MD Attending Provider Physician Referring Provider Specialty: Urology Address: [address] [place] [address], [id number] Email: Plan Of Care PT-OP-T Assessment and Plan Start: 03/06/23 10:30 Freq: Status: Active Protocol: Document 03/06/23 10:30 [facility] (Rec: 03/07/23 12:03 [facility] [id number]) Physical Therapy Assessment Rehab Potential Rehabilitation Potential Excellent Evaluation Complexity Number of Personal Factors/Comorbidities 0 Number of Body Systems Impaired 1-2 Clinical Presentation at Evaluation Stable Impairments Impairments Activity Tolerance,Soft Tissue Mobility,Strength Other Impairments urinary incontinence and nocturia Goals 3 Impairment Nocturia with pt waking 4 times per night to void Shelter Goal (LTG) Bubba is able to reduce his night time voiding and is waking up only 1-2 times per night to void LTG Duration 8 weeks+ 2 Impairment urinary stress incontinence with Bubba leaking 5-10 times per day Short Term Goal (STG) Bubba is educated on a pelvic floor strengthening program for home to help reduce urinary incontinence STG Duration 3 weeks Shelter Goal (LTG) Bubba report he has little to no leakage throughout the day LTG Duration 8 weeks+ 1 Impairment pelvic floor weakness s/p radical retropubic prostatectomy Leather Cutter Goal (LTG) Bubba is demonstrating improved pelvic floor strength as is able to sustain a pelvic floor contraction in supine x 10 seconds and in standing x 5 seconds LTG Duration 8 weeks Assessment Summary Assessment Bubba is a 82 year old male who is s/p Radical retropubic prostatectomy/bilateral pelvic lymphadecectomy on 01/28/23. He presets to today with urinary incontinence symptoms that are improving since his surgery. He does note that he leaks 5-10 times per day but is only wearing one depends a day for the most part. He notes his leakage does increase with activity but is becoming less. Bubba wakes 3-4 times at night to void. He reports he was waking every hour due to urgency however this has been tapering off. Time was spent today looking at his incision and assessing scar tissue. The incision is well healed. There is scar tissue present and worked on scar tissue mobilization for the bladder and suprapubic fascia. Pt notes this felt good to decrease scar tissue tightness and he was shown how to gently work on scar tissue massage for home. Bubba was educated on pelvic floor contractions. He tends to pulse his pelvic floor and lacks the ability to sustain a pelvic floor contraction more than a few seconds. He was educated on endurance holds of his pelvic floor, bracing his pelvic floor prior to transition movements, and quick contractions of his pelvic floor. He tolerated this well. Bubba is [facility] and would like to spread out his visits . He will be seen every other week for PT for pelvic floor strengthening with a goal of working toward full continence . Physical Therapy Plan Frequency and Duration Frequency of Treatment Every Other Week Duration of treatment (weeks) 8 Plan of Care Start Date 03/06/23 Plan of Care End Date 05/01/23 Therapeutic Interventions Therapeutic Interventions Home Exercise Program, Neuromuscular Re-education, Patient/Caregiver Education, Self-Care/Home Management, Therapeutic Exercises Modalities Biofeedback Next Visit Focus/Plan Next Note Type Treatment Note Next Visit Plan review pelvic floor exercises given at initial evaluation, asses scar tissue progress pelvic floor exercises with EMG biofeedback Plan of Care Dates Plan of Care Start Date 03/06/23 Plan of Care End Date 05/01/23 Electronically Signed by: Effie Garnett, PT 03/07/23 [id number] If you are in agreement with this Plan of Care, please return a signed and dated copy. I have reviewed this Plan of Care and certify that the skilled therapy services above are required to meet the patient?s needs. Physician Signature Date Printed Name and Credentials Clinical Instructor Signature Printed Name and Credentials
--- NOTE | 2023-04-25 10:54 | PT.OPDS ---
Current Diagnoses Malignant neoplasm of prostate (03/06/23) Other specified urinary incontinence (03/06/23) Nocturia (03/06/23) Visit Care Team Role Provider Type Nando Orellana MD Family Provider Physician Primary Care Provider Specialty: Family Practice Address: [facility] [address], [address] Email: [email or web address] Ace Maxwell MD Attending Provider Physician Referring Provider Specialty: Urology Address: [address] [place] [address], [id number] Email: Visit Number Visit Number 1 Discharge Summary PT-OP-B Current Condition Start: 03/06/23 10:30 Freq: Status: Active Protocol: Document 03/06/23 10:30 [facility] (Rec: 03/06/23 11:12 [facility] [id number]) Current Condition History of Current Condition Onset Date 01/28/23 Current Complaints urinary leakage s/p prostatectomy History of Current Condition pt notes he is doing better with leakage every day. He is using both pads and depends and he can wear the same one all day long. For example he has one on now and he hasn't noticied any leakage. There is a little leakage at night but not a lot. He gets up 3-4 times per night to void, it was every hour and is tapering off. He is drinking 8 glasses of 8oz of fluid during the day. Treatment Goals Patient/Caregiver Goals pts goals include full continence Current Functional Impairments (Reported) Functional Limitations- ADL's pt is limited with ADL's that require heavy lifting due to increased leakage Functional Limitations- Other pt is limited in his ability to sleep through the night due to waking up to void 3-4 times per night PT-OP-F Manual Assessment Start: 03/06/23 10:30 Freq: Status: Active Protocol: Document 03/06/23 10:30 [facility] (Rec: 03/07/23 11:55 [facility] [id number]) Manual Assessments Soft Tissue Assessment Soft Tissue Mobility Assessment scar tissue present on either side of the lower abdominal incision, restrictions in the mobility of the suprapubic fascia due to scar tissue decreased bladder mobility PT-OP-I Pelvic Floor Start: 03/06/23 10:30 Freq: Status: Active Protocol: Document 03/06/23 10:30 [facility] (Rec: 03/07/23 11:59 [facility] [id number]) Pelvic Floor Assessment Urine Pelvic Floor Surgery Yes: prostatectomy Urinary Symptoms Urge Sensation Other Urinary Symptoms urinary leakage with activity 5-10 times per day Leakage Size Medium Leakage Cause Urge Other Leakage Causes activity throught the day causes leakage Leaks Per Day 5-10 Voiding Frequency 2 hours Nocturia 4 Pads Used In 24 Hours 1-2 Urine Pad Type Depends Contraction Ability Voluntary Contraction Weak Muscle Endurance (Seconds) 2 Comments Pelvic Floor Comments external pelvic floor assessment done today, pt tends to pulse his pelvic floor with contractions and is limited to 1-2 sec hold. He is educated on facilitation of the anterior pelvic floor and endurance pelvic floor contractions PT-OP-J Posture/Palpation/Skin Start: 03/06/23 10:30 Freq: Status: Active Protocol: Document 03/06/23 10:30 [facility] (Rec: 03/07/23 11:55 [facility] [id number]) Palpation Assessment Location prostatectomy scar lower abdomen Palpation Findings Soft Tissue Tightness Palpation Details scar is well healed, there is scar tissue tightness on either side of the scar and decreased mobility of the suprapubic fascia PT-OP-T Assessment and Plan Start: 03/06/23 10:30 Freq: Status: Active Protocol: Document 04/25/23 10:53 [facility] (Rec: 04/25/23 10:54 [facility] [id number]) Physical Therapy Assessment Assessment Summary Assessment Bubba has not retured to PT since his initial visit in March and has cx his remaining visits in PT. He will be discharged at this time. Physical Therapy Plan Discharge Physical Therapy Discharge Reasons No Longer Attending PT
== END 2023-04-26 10:15 | disposition home or self-care (01) ==
LOC: PHYS 09:09
PROVIDERS: Absent Provider Family Medicine; Family Provider Family Medicine; PCP Family Medicine; Referring Provider Specialist; Visit Provider Specialist
DX: C61 Malignant neoplasm of prostate (principal); R35.1 Nocturia; N39.498 Other specified urinary incontinence
CPT/HCPCS: 97110; 97161